=== PATIENT | male | born 1995 | race Caucasian/White ===

== ENCOUNTER 2017-04-23 11:58 | Emergency (ER) | payer OTHER ==
[~2017-04-23] VITALS: Ht 348 cm; Wt 102.1 kg
[~2017-04-23 11:58] MED LIST: AZITHROMYCIN250 MG PO; GABAPENTIN300 MG PO; IBUPROFEN400 MG PO; LAMOTRIGINE25 MG PO; LEVOTHYROXINE25 MCG PO; LORAZEPAM1 MG PO; OFLOXACIN5 ML OU; OMEPRAZOLE20 MG PO; RISPERDAL1 MG PO; TYLENOL WITH C1 EACH PO; VITAMIN D5000 UNIT PO; ZOFRAN ODT4 MG SL
[2017-04-23] MEDS ORDERED: BROMOCRIPTINE2.5 MG PO (12:50)
[2017-04-23] MEDS ORDERED: OSTERA TABLET1 EACH PO (12:51)
[2017-04-23] MEDS ORDERED: MELATONIN5 M2 PO (12:52)
[2017-04-23] MEDS ORDERED: BENADRYL ALLERG25 MG PO (12:53)
== END 2017-04-23 14:39 | disposition home or self-care (01) ==
LOC: ED 11:58
DX: F91.9 Conduct disorder, unspecified (principal); Z88.1 Allergy status to other antibiotic agents; Z88.2 Allergy status to sulfonamides; Z88.0 Allergy status to penicillin; Z88.8 Allergy status to other drugs, medicaments and biological substances; Z79.899 Other long term (current) drug therapy
CPT/HCPCS: 80053; 80176; 81001; 84443; 85025; 99283; G0480

== ENCOUNTER 2021-04-30 02:33 | Emergency (ER) | payer OTHER ==
[~2021-04-30] VITALS: Ht 172.7 cm; Wt 111.1 kg
[~2021-04-30 02:33] MED LIST changes: +BENADRYL ALLERG25 MG PO; +BROMOCRIPTINE2.5 MG PO; +MELATONIN5 M2 PO; +OSTERA TABLET1 EACH PO
--- OUTSIDE RECORDS SUMMARY | 2021-04-30 02:36 | XMS ---
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 Guidelines Source: [employer] [facility] [place] Guidelines Date: 02/02/2020 Care Coordination: Member is currently enrolled in Mental Health Services through [employer]. If services are needed through [employer] please call: Jerrell [phone] [place]/[facility]; [phone] Crisis [phone] E.D. VISIT COUNT (12 MO.) 1 [facility] TOTAL 1 NOTE: Visits indicate total known visits. ED/UCC VISIT TRACKING (12 MO.) 04/30/2021 02:33 [facility] [place] TYPE: Emergency COMPLAINT: - PAIN INPATIENT VISIT TRACKING (12 MO.) No inpatient visits to display in this time frame [email or web address]
== END 2021-04-30 05:59 | disposition home or self-care (01) ==
LOC: ED 02:33
DX: R45.1 Restlessness and agitation (principal); Z20.822 Contact with and (suspected) exposure to COVID-19; Z88.8 Allergy status to other drugs, medicaments and biological substances; Z88.2 Allergy status to sulfonamides; Z88.1 Allergy status to other antibiotic agents; Z88.0 Allergy status to penicillin; Z79.899 Other long term (current) drug therapy
CPT/HCPCS: 80053; 81001; 85025; 99284; A9270-GY; C9803; U0003

== ENCOUNTER 2021-05-17 11:10 | Emergency (ER) | payer OTHER ==
[~2021-05-17] VITALS: Ht 172.7 cm; Wt 111.1 kg
--- OUTSIDE RECORDS SUMMARY | 2021-05-17 11:18 | XMS ---
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 Guidelines Source: [employer] [facility] [place] Guidelines Date: 02/02/2020 Care Coordination: Member is currently enrolled in Mental Health Services through [employer]. If services are needed through [employer] please call: Jerrell [phone] Rohan/[facility]; [phone] Crisis [phone] E.D. VISIT COUNT (12 MO.) 2 [facility] TOTAL 2 NOTE: Visits indicate total known visits. ED/UCC VISIT TRACKING (12 MO.) 05/17/2021 11:11 [facility] [place] TYPE: Emergency COMPLAINT: - ABDOMINAL PAIN, HEADACHE 04/30/2021 02:33 [facility] [place] TYPE: Emergency COMPLAINT: - PAIN DIAGNOSES: - Other assisted (current) drug therapy - Allergy status to other antibiotic agents - Restlessness and agitation - Allergy status to sulfonamides - Allergy status to other drugs, medicaments and biological substances - Allergy status to penicillin INPATIENT VISIT TRACKING (12 MO.) No inpatient visits to display in this time frame [email or web address]
[2021-05-17] MEDS ORDERED: HYDROCODON-ACE1 EA11 PO (17:39)
== END 2021-05-17 18:16 | disposition home or self-care (01) ==
LOC: ED 11:10
DX: R14.0 Abdominal distension (gaseous) (principal); F79 Unspecified intellectual disabilities; Z88.8 Allergy status to other drugs, medicaments and biological substances; Z88.2 Allergy status to sulfonamides; Z88.1 Allergy status to other antibiotic agents; Z88.0 Allergy status to penicillin; Z79.899 Other long term (current) drug therapy
CPT/HCPCS: 74177; 80053; 81001; 83690; 85025; 96375; 99284-25; J1170; J2765; J3010; Q9967

== ENCOUNTER 2021-05-25 17:21 | Emergency (ER) | payer OTHER ==
[~2021-05-25] VITALS: Ht 172.7 cm; Wt 111.1 kg
[~2021-05-25 17:21] MED LIST changes: +HYDROCODON-ACE1 EA11 PO
--- OUTSIDE RECORDS SUMMARY | 2021-05-25 17:24 | XMS ---
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. If services are needed through [employer] please call: Jerrell [phone] Rohan/Robby Polo\María\[facility]; [phone] [facility] [phone] E.Thee VISIT COUNT (12 MO.) 3 [facility] TOTAL 3 NOTE: Visits indicate total known visits. ED/UCC VISIT TRACKING (12 MO.) 05/25/2021 17:21 [facility] [place] TYPE: Emergency COMPLAINT: - STOMACH PAIN 05/17/2021 11:11 [facility] [place] TYPE: Emergency COMPLAINT: - ABDOMINAL PAIN, HEADACHE DIAGNOSES: - Allergy status to other drugs, medicaments and biological substances - Other fdc (current) drug therapy - Allergy status to sulfonamides - Abdominal distension (gaseous) - Unspecified intellectual disabilities - Allergy status to penicillin - Unspecified abdominal pain - Allergy status to other antibiotic agents 04/30/2021 02:[address] [facility] [place] TYPE: Emergency COMPLAINT: - PAIN DIAGNOSES: - Other fdc (current) drug therapy - Allergy status to other antibiotic agents - Restlessness and agitation - Allergy status to sulfonamides - Allergy status to other drugs, medicaments and biological substances - Allergy status to penicillin INPATIENT VISIT TRACKING (12 MO.) No inpatient visits to display in this time frame [email or web address]
== END 2021-05-25 22:27 | disposition home or self-care (01) ==
LOC: ED 17:21
DX: K59.00 Constipation, unspecified (principal); Z88.8 Allergy status to other drugs, medicaments and biological substances; Z88.2 Allergy status to sulfonamides; Z88.1 Allergy status to other antibiotic agents; Z88.0 Allergy status to penicillin; Z79.899 Other long term (current) drug therapy
CPT/HCPCS: 74176; 96372; 99284-25; J2212

== ENCOUNTER 2021-06-21 06:10 | Day surgery (SDC) | payer OTHER ==
--- NOTE | 2021-06-19 14:40 | NUR ---
PHONE PRE-ADMIT WITH PATIENT MOTHER TODD, SHE ANSWERED QUESTION AND WILL BRING UPDATED MEDICATION LIST ON 06/21/21.
[~2021-06-21] VITALS: Ht 172.7 cm; Wt 108.0 kg
[2021-06-21] MEDS ORDERED: METFORMIN HCL500 MG PO (07:21)
[2021-06-21] MEDS ORDERED: CLONIDINE HCL0.1 MG PO (07:21)
[2021-06-21] MEDS ORDERED: ZYRTEC10 M3 PO (07:22)
[2021-06-21] MEDS ORDERED: ZOCOR40 MG PO (07:23)
[2021-06-21] MEDS ORDERED: MEN'S ONE DAIL1 EACH PO (07:24)
--- NOTE | 2021-06-21 09:09 | NUR ---
06/21/21 0909 Sheets,Samina 0900 PT ARRIVED TO PACU ON 6L VIA MASK, ORAL AND NASAL AIRWAY IN PLACE. PT ASLEEP AND NONAROUSABLE. VSS,
--- NOTE | 2021-06-21 11:36 | OR ---
[facility] [address], [place] [address] Signed DATE OF OPERATION: 06/21/2021 SURGEON: Bassem Cisneros MD PREOPERATIVE DIAGNOSES: 1. Generalized abdominal pain. 2. Dilated stomach to transverse colon on radiographic studies. 3. Chronic constipation, diarrhea and anorexia. POSTOPERATIVE DIAGNOSES: 1. Small hiatal hernia. 2. GE junction at 38 cm. 3. Long redundant colon. PROCEDURES: 1. Esophagogastroduodenoscopy with CLOtest and biopsies of the duodenum and antrum. 2. Colonoscopy with random cold biopsies to the proximal transverse colon. ESTIMATED BLOOD LOSS: None. INDICATIONS: Neville is a 25-year-old significantly disabled gentleman with mental retardation, developmental delay, blindness and nonverbal. He resides with his mother. He seemed to be more agitated recently and was striking his abdomen a few weeks prior to being seen in my office. He had been in the emergency room. No clear source for his pain was uncovered. His laboratory work was unremarkable. The CT scan of the abdomen and pelvis showed his dilated stomach down to the transverse duodenum. A followup ultrasound confirmed his dilated stomach down to the transverse duodenum. The etiology for that is unclear. body mass index, he would not have superior mesenteric artery syndrome. He had been following along with his primary care provider. He has really been unable to give any significant stool studies due to his developmental delay. Again today, she told me she thinks it is better. No family history of colon cancer or polyps. No family history of inflammatory bowel disease. In the office, I gave mom pamphlets on both upper and lower endoscopy. We had reviewed those tests in detail. She understands there is risk including, but not limited to gas bloating, crampy abdominal pain, bleeding, perforation requiring surgery, and missed diagnosis. Also because of his significant medical issues and his developmental delay, we did ask for monitored anesthesia care, which proved to be a elder that she is in today. His mom had expressed understanding and wished to proceed. Electronically Signed By: BASSEM CISNEROS MD 06/21/21 1136 PATIENT NAME: NEVILLE HINKLE OPERATIVE REPORT DATE OF : [birth year] REPORT #: [id number] PHYSICIAN: BASSEM CISNEROS MD PCP: OSMAN RAMOS MD REPORT IS CONFIDENTIAL AND NOT TO BE RELEASED WITHOUT AUTHORIZATION [facility] [address], [place] [address] Signed PROCEDURE NOTE: Neville was taken into the endoscopy suite and placed in a supine semi-recumbent position. A bite block was utilized for the upper endoscopy. He was given monitored anesthesia care per our nurse animal nurse. The adult gastroscope had been introduced and advanced down to a moderately large stomach. We did pass the camera down almost to the handle before we got to the bottom of the antrum. We finally made it into the pyloric bulb and out into the duodenum. Of course, we were only in the 2nd portion the duodenum, it appeared quite healthy. We went and took a biopsy of the 2nd portion of the duodenum due to history of diarrhea. Very minimal irritation in the pyloric bulb, but no ulcers in the pyloric bulb. The stomach really was unremarkable. We went and took a biopsy of the antrum for pathologic review as well as CLOtest. There was no ulcerations in the stomach. Upon retroflexion of scope, he appears to have just a very small hiatal hernia. The scope had been withdrawn up through the area of GE junction, which was compliant without stricture. The GE junction measured down to about 38 cm. Really very minimal if any disruption to the Z-line. Really, no evidence of any Pittman's mucosa. There was no distal esophagitis. The middle and upper esophagus were unremarkable. After this, the gastroscope had been removed along with the gas. He had tolerated the upper endoscopy quite well. Neville was rotated into the left lateral decubitus position. He was maintained on monitored anesthesia care per our nurse animal nurse. A digital rectal exam was performed and this was unremarkable. The adult colonoscope was introduced and advanced to a very long redundant left-sided colon. We finally made around out into the mid proximal transverse colon. His prep was quite excellent. We had rotated him into the supine position and back into the left lateral decubitus position. We used the abdominal compression and we never could get the scope to pass any further. The scope was slowly withdrawn. We took a couple of random biopsies due to the history of diarrhea. There was no inflammatory changes throughout the distal half of the colon or the rectum. No polyps. No diverticulosis. Upon retroflexion of scope, there was no pathology noted above the anal canal. After this, the gas was suctioned out and the colonoscope removed. Neville tolerated the procedure quite well. After this, he was awakened from anesthesia and taken into the recovery room in stable condition. RECOMMENDATIONS: I will see Neville and his mother in the office in 7 to 14 days. If he continues to have concerns of abdominal symptoms, he could consider a small bowel follow-through. He might also consider a barium enema to evaluate the proximal one half of the stomach. Whether or not he can tolerate that without anesthesia and sedation is unknown. Electronically Signed By: BASSEM CISNEROS MD 06/21/21 1136 PATIENT NAME: NEVILLE HINKLE OPERATIVE REPORT DATE OF : [birth year] REPORT #: [id number] PHYSICIAN: BASSEM CISNEROS MD PCP: OSMAN RAMOS MD REPORT IS CONFIDENTIAL AND NOT TO BE RELEASED WITHOUT AUTHORIZATION [address], [place] [address] Signed Bassem Cisneros MD ALB/MODL /[id number] cc: MD Osman Zhu MD Copies: BASSEM CISNEROS MD, RUSSELL BARR MD ~ Electronically Signed By: BASSEM CISNEROS MD 06/21/21 1136 PATIENT NAME: NEVILLE HINKLE OPERATIVE REPORT DATE OF : [birth year] REPORT #: [id number] PHYSICIAN: BASSEM CISNEROS MD PCP: OSMAN RAMOS MD REPORT IS CONFIDENTIAL AND NOT TO BE RELEASED WITHOUT AUTHORIZATION
== END 2021-06-21 10:00 | disposition home or self-care (01) ==
LOC: DS 06:10 → OPS 06:10 → DS 07:30 → OPS 10:00
PROVIDERS: ATTEND Colon & Rectal Surgery
PROC: 0DBE8ZX Excision of Large Intestine, Via Natural or Artificial Opening Endoscopic, Diagnostic (ICD-10-PCS; 2021-06-21)
PROC: 0DB98ZX Excision of Duodenum, Via Natural or Artificial Opening Endoscopic, Diagnostic (ICD-10-PCS; principal; 2021-06-21 07:30)
PROC: 0DB68ZX Excision of Stomach, Via Natural or Artificial Opening Endoscopic, Diagnostic (ICD-10-PCS; 2021-06-21 07:30)
DX: R10.84 Generalized abdominal pain (principal); K44.9 Diaphragmatic hernia without obstruction or gangrene; Q43.8 Other specified congenital malformations of intestine; F79 Unspecified intellectual disabilities; R62.50 Unspecified lack of expected normal physiological development in childhood; Z88.0 Allergy status to penicillin; Z88.1 Allergy status to other antibiotic agents; Z88.2 Allergy status to sulfonamides; Z88.8 Allergy status to other drugs, medicaments and biological substances; Z20.822 Contact with and (suspected) exposure to COVID-19
CPT/HCPCS: 00750; 80053; 83009; 85025; 88305; J0461; J2250; J2704; J7121; U0003

== ENCOUNTER 2022-01-08 04:38 | Emergency (ER) | payer OTHER ==
[~2022-01-08] VITALS: Ht 172.7 cm; Wt 122.5 kg
[~2022-01-08 04:38] MED LIST changes: +CLONIDINE HCL0.1 MG PO; +MEN'S ONE DAIL1 EACH PO; +METFORMIN HCL500 MG PO; +ZOCOR40 MG PO; +ZYRTEC10 M3 PO
[2022-01-08] MEDS ORDERED: ATIVAN0.5 MG PO (04:59)
[2022-01-08] MEDS ORDERED: AMOXICILLIN500 MG PO (05:18)
[2022-01-08] MEDS ORDERED: HYDROCODON-ACE1 EA10 PO (05:18)
--- OUTSIDE RECORDS SUMMARY | 2022-01-08 06:32 | XMS ---
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 - Allergy status to penicillin - Allergy status to sulfonamides - Allergy status to other drugs, medicaments and biological substances - Allergy status to other antibiotic agents - Constipation, unspecified 05/17/2021 11:11 [facility] [place] TYPE: Emergency COMPLAINT: - ABDOMINAL PAIN, HEADACHE DIAGNOSES: - Allergy status to other drugs, medicaments and biological substances - Other termite control servicer (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 [place] TYPE: Emergency COMPLAINT: - PAIN DIAGNOSES: - Other fdc (current) drug therapy - Allergy status to other antibiotic agents - Restlessness and agitation - Allergy status to sulfonamides - Allergy status to other drugs, medicaments and biological substances - Allergy status to penicillin INPATIENT VISIT TRACKING (12 MO.) No inpatient visits to display in this time frame [email or web address]
== END 2022-01-08 05:31 | disposition home or self-care (01) ==
LOC: ED 04:38
DX: K08.89 Other specified disorders of teeth and supporting structures (principal); Z88.1 Allergy status to other antibiotic agents; Z88.2 Allergy status to sulfonamides; Z88.0 Allergy status to penicillin; Z88.8 Allergy status to other drugs, medicaments and biological substances; Z79.899 Other long term (current) drug therapy; Z79.84 Long term (current) use of oral hypoglycemic drugs
CPT/HCPCS: 99282

== ENCOUNTER 2022-03-05 01:13 | Emergency (ER) | payer OTHER ==
[~2022-03-05] VITALS: Ht 172.7 cm; Wt 131.5 kg
[~2022-03-05 01:13] MED LIST changes: +AMOXICILLIN500 MG PO; +ATIVAN0.5 MG PO; +HYDROCODON-ACE1 EA10 PO; +NEURONTIN300 MG PO
--- OUTSIDE RECORDS SUMMARY | 2022-03-05 01:16 | XMS ---
PreManage Notification: NEVILLE HINKLE Security Cemetery Manager Events No recent Security Events currently on file CRITERIA MET - PDMP [facility]Current PHONE: Unknown Care Guidelines exist for the following facilities: [facility] ( 02/02/2020 ) [place]leine VISIT COUNT (12 MO.) 5 [facility] TOTAL 5 NOTE: Visits indicate total known visits. 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 hypoglycemic drugs - Allergy status to other drugs, medicaments and biological substances - Other specified disorders of teeth and supporting structures - Other snf (current) drug therapy - Allergy status to sulfonamides - Allergy status to other antibiotic agents 05/25/2021 17:21 [facility] [place] TYPE: Emergency COMPLAINT: - STOMACH PAIN DIAGNOSES: - Other superintendent terminal (current) drug therapy - Allergy status to penicillin - Allergy status to sulfonamides - Allergy status to other drugs, medicaments and biological substances - Allergy status to other antibiotic agents - Constipation, unspecified 05/17/2021 11:11 [facility] [place] TYPE: Emergency COMPLAINT: - ABDOMINAL PAIN, HEADACHE DIAGNOSES: - Allergy status to other drugs, medicaments and biological substances - Other snf (current) drug therapy - Allergy status to sulfonamides - Abdominal distension (gaseous) - Unspecified intellectual disabilities - Allergy status to penicillin - Unspecified abdominal pain - Allergy status to other antibiotic agents 04/30/2021 02:33 [facility] [place] TYPE: Emergency COMPLAINT: - PAIN DIAGNOSES: - Other snf (current) drug therapy - Allergy status to other antibiotic agents - Restlessness and agitation - Allergy status to sulfonamides - Allergy status to other drugs, medicaments and biological substances - Allergy status to penicillin INPATIENT VISIT TRACKING (12 MO.) No inpatient visits to display in this time frame [email or web address]
[2022-03-05] MEDS ORDERED: PERCOCET 5-3251 EACH PO (02:17)
== END 2022-03-05 02:35 | disposition home or self-care (01) ==
LOC: ED 01:13
DX: G89.18 Other acute postprocedural pain (principal); Z88.1 Allergy status to other antibiotic agents; Z88.2 Allergy status to sulfonamides; Z88.0 Allergy status to penicillin; Z88.8 Allergy status to other drugs, medicaments and biological substances; Z79.899 Other long term (current) drug therapy

== ENCOUNTER 2022-08-11 22:59 | Inpatient (IN) | payer OTHER ==
[~2022-08-11] VITALS: Ht 172.7 cm; Wt 139.1 kg
[~2022-08-11 22:59] MED LIST changes: -ATIVAN0.5 MG PO; +PERCOCET 5-3251 EACH PO; +VITAMIN D-40010 MCG PO; -VITAMIN D5000 UNIT PO; -ZYRTEC10 M3 PO; +ZYRTEC10 MG PO
--- OUTSIDE RECORDS SUMMARY | 2022-08-11 23:02 | XMS ---
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 ED/UCC VISIT TRACKING (12 MO.) 08/11/2022 22:59 [facility] [place] TYPE: Emergency COMPLAINT: - LOW OXYGEN 03/05/2022 01:14 [facility] [place] TYPE: Emergency COMPLAINT: - POST OP PROBLEM DIAGNOSES: - Allergy status to other antibiotic agents - Other acute postprocedural pain - Allergy status to sulfonamides - Allergy status to penicillin - Allergy status to other drugs, medicaments and biological substances - Other snf (current) drug therapy 01/08/2022 04:39 [facility] [place] TYPE: Emergency COMPLAINT: - WON'T STOP SCREAMING DIAGNOSES: - Other snf (current) drug therapy - Allergy status to other drugs, medicaments and biological substances - Allergy status to penicillin - Allergy status to sulfonamides - Other specified disorders of teeth and supporting structures - MCC (current) use of oral hypoglycemic drugs - Allergy status to other antibiotic agents INPATIENT VISIT TRACKING (12 MO.) No inpatient visits to display in this time frame [id number]
[2022-08-11] MEDS ORDERED: FAMOTIDINE20 MG PO (23:31)
[2022-08-11] MEDS ORDERED: CLOBETASOL PROP50 GM TOP (23:31)
[2022-08-12] MEDS ORDERED: MELATONIN5 M2 PO (04:52)
[2022-08-12] MEDS ORDERED: BENADRYL ALLERG25 MG PO (04:53)
[2022-08-12] MEDS ORDERED: MULTI VITAMIN1 EACH PO (04:53)
--- NOTE | 2022-08-12 07:35 | EKG ---
[facility] [address] [facility] [place], [place] [address] Signed Sinus tachycardia Otherwise normal ECG No previous ECGs available Confirmed by DARELL BEATTY MD ([id number]) on 08/12/2022 7:35:07 AM Electronically Signed By: DARELL BEATTY MD 08/12/22 0735 PATIENT NAME: NEVILLE HINKLE WARREN Electrocardiogram DATE OF : [birth year] PHYSICIAN: DARELL BEATTY MD REPORT #: [id number] REPORT IS CONFIDENTIAL AND NOT TO BE RELEASED WITHOUT AUTHORIZATION
[2022-08-12] MEDS ORDERED: LEVOTHYROXINE75 MCG PO (07:39)
[2022-08-12] MEDS ORDERED: VITAMIN D21250 MCG PO (07:45)
[2022-08-12] MEDS ORDERED: VITAMIN B-6100 MG PO (08:38)
[2022-08-12] MEDS ORDERED: LAMOTRIGINE100 MG PO (09:46)
[2022-08-12] MEDS ORDERED: ATIVAN2 MG PO (09:58)
[2022-08-16] MEDS ORDERED: FRONT WHEELED WALKER XX (11:45)
== END 2022-08-16 14:31 | disposition home health service (06) | DRG 193 ==
LOC: ED 22:59 → MS 08-12
PROVIDERS: ADMIT Internal Medicine; ATTEND Internal Medicine
DX: J10.1 Influenza due to other identified influenza virus with other respiratory manifestations (principal); G93.41 Metabolic encephalopathy; J96.01 Acute respiratory failure with hypoxia; E87.3 Alkalosis; Z20.822 Contact with and (suspected) exposure to COVID-19; K21.9 Gastro-esophageal reflux disease without esophagitis; E11.9 Type 2 diabetes mellitus without complications; F39 Unspecified mood [affective] disorder; R45.1 Restlessness and agitation; G40.909 Epilepsy, unspecified, not intractable, without status epilepticus; Z98.890 Other specified postprocedural states; Z88.0 Allergy status to penicillin; Z88.1 Allergy status to other antibiotic agents; Z88.2 Allergy status to sulfonamides; Z88.8 Allergy status to other drugs, medicaments and biological substances; Z79.899 Other long term (current) drug therapy
CPT/HCPCS: 36415; 36600; 51701; 71045; 80053; 81001; 82803; 83605; 83735; 83880; 84484; 85025; 85610; 85730; 87040; 87502; 93005; 93010; 94640; 94760; 97110; 97116; 97163; 97530; 99285-25; A9270; J1650; J1956; J2060; J2930; J3480; J7121; U0003